=== PATIENT | male | born 1990 | race Caucasian/White ===

== ENCOUNTER 2021-06-15 19:00 | Emergency (ER) | payer OTHER, BC, SELFPAY ==
[2021-06-15 19:39] VITALS: BP 142/91; PULSE 94; RESP 16; TEMP 36.8; O2SAT 97; BMI 31.1
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
[2021-06-15 20:59] VITALS: PULSE 88; RESP 16; O2SAT 100
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
[2021-06-15] MEDS: naproxen 500 mg Tablet PO (21:22)
[2021-06-15 21:39] VITALS: BP 132/78; PULSE 64; RESP 18; O2SAT 98
== END 2021-06-15 21:40 | disposition home or self-care (01) ==
PROVIDERS: Emergency Provider Emergency Medicine
DX: S39.012A Strain of muscle, fascia and tendon of lower back, initial encounter (principal); V68.5XXA Driver of heavy transport vehicle injured in noncollision transport accident in traffic accident, initial encounter
CPT/HCPCS: 72100; 99283

== ENCOUNTER → 2023-12-04 14:12 | Outpatient (BNVA) | payer BC, SELFPAY | PROVIDERS: PCP Family Medicine Adult Medicine; Visit Provider Family Medicine Adult Medicine | DX: R53.83 Other fatigue (principal); R41.3 Other amnesia | CPT/HCPCS: 80053; 84403; 84443; 85025 ==

== ENCOUNTER 2024-04-03 13:59 | Emergency (ER) | payer BC, OTHER, SELFPAY ==
[2024-04-03 14:16] VITALS: BP 124/90; PULSE 88; RESP 18; TEMP 36.7; O2SAT 97; BMI 29.8
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
--- NOTE | 2024-04-03 14:51 | PC.NURSE ---
cleansed wound and dressed with telfa and kerlex.
== END 2024-04-03 14:51 | disposition home or self-care (01) ==
PROVIDERS: Emergency Provider Physician Assistant; PCP Family Medicine Adult Medicine
DX: T24.101A Burn of first degree of unspecified site of right lower limb, except ankle and foot, initial encounter (principal); X19.XXXA Contact with other heat and hot substances, initial encounter; Y99.0 Civilian activity done for income or pay
CPT/HCPCS: 99282

== ENCOUNTER 2024-06-20 20:07 | Emergency (ER) | payer BC, SELFPAY ==
--- NOTE | 2024-06-20 20:29 | XRR_ITS ---
PROCEDURE INFORMATION: Exam: XR Left Knee Exam date and time: 06/20/2024 8:46 PM Age: 33 years old Clinical indication: Injury or trauma; Sprain or strain; Patella or knee; Patient HX: Patient felt pop in left knee while playing basketball. C/O pain worse on lateral side of knee. ; Additional info: Inj pain TECHNIQUE: Imaging protocol: Radiologic exam of the left knee. Views: 1 or 2 views. COMPARISON: No relevant prior studies available. FINDINGS: Bones/joints: There is no evidence for acute fracture or malalignment. No joint space narrowing or osteophyte formation. Soft tissues: Normal. XR/XR knee LT 1-2V [id number] IMPRESSION: No acute findings. If there is desire for further evaluation, a MRI could be performed.
[2024-06-20 20:30] VITALS: BP 121/80; PULSE 95; RESP 16; TEMP 36.7; O2SAT 96; BMI 31.8
--- NOTE | 2024-06-20 21:10 | W.ED.EXTPRO ---
HPI - Extremity Problem General: Chief complaint: Extremity Injury, Lower Stated complaint: left knee injury Time Seen by Provider: 06/20/24 20:29 History of Present Illness: Patient is a 33-year-old male who presents to the emergency department with complaints of left knee pain. Patient reports he was playing ball approximately an hour and a half ago when he twisted his knee. He states he felt something give. He said he felt a popping sensation with movement that was more lateral. When he landed on the ground there was another popping sensation and that movement resolved. Patient was unable to bear weight initially due to pain. He wrapped the knee with a compression/Kalyan wrap. His symptoms improved. He reports he had 1 previous knee injury but does not recall which knee it was. It was reportedly a meniscus tear. This occurred when he was living in [place]. Patient denies other chronic medical comorbidities. He is treated for depression. Related Data Previous Rx's Medication Instructions Recorded bupropion HCl 300 mg 24 hr tablet, 300 mg PO QAM depressions #90 tabs 02/04/24 extended release bupropion HCl 150 mg 24 hr tablet, 150 mg PO QAM #90 tabs 04/02/24 extended release Allergies Allergy/AdvReac Type Severity Reaction Status Date / Time No Known Allergies Allergy Verified 04/03/24 14:22 Review of Systems General: Reports: 10 or more systems reviewed and unremarkable except in HPI and below PFSH ED PFSH: Medical History Depression determined by examination Memory changes Fatigue Surgical History No pertinent past surgical history Family History Father Heart disease Mother History of back surgery Social History Smoking and tobacco/nicotine status: never used tobacco/nicotine Alcohol intake: never Substance/Drug Use: never Physical Exam Const: COMMON NORMALS: no acute distress, average body habitus, patient oriented x3, no limitations, healthy appearing, alert and well nourished Extremity: GENERAL: Yes normal exam except as noted LEFT LOWER EXTREMITY: Yes knee joint Left knee: Yes inspection (No obvious injury. No ecchymosis, no deformity.), Yes palpation (Tenderness to the lateral aspect of the knee) and Yes ROM (Limited due to pain. Tolerates passive ROM) Neuro: COMMON NORMALS: patient oriented x3, moves all extremities, no focal motor deficits, no sensory deficits noted and gait normal SENSORIUM/ORIENTATION: Yes alert Skin: NARRATIVE SKIN EXAM: see above Course Vital Signs: Vital signs: Vital Signs Temperature 98.1 F 06/20/24 20:30 Pulse Rate 78 06/20/24 21:11 Respiratory Rate 16 06/20/24 21:11 Blood Pressure 129/76 06/20/24 21:11 Pulse Oximetry 96 06/20/24 21:11 Oxygen Delivery Me thod Room Air 06/20/24 21:11 MDM - Extremity (Nontraumatic) Medical Decision Making Patient was evaluated in the emergency department today for a left knee injury. Patient reports that he had a popping sensation and felt as though his patella may have dislocated. It reduced on its own if so. He did undergo XR imaging of the knee which revealed no acute fractures. His patella may ride to more lateral at this time. But he is nontender to and around the patella. His tenderness is located to the lateral aspect of the knee. His x-ray reveals no acute fracture. We did put him in a knee immobilizer and advised him to use ice and elevation. He needs to follow-up with primary care this week. Were also going to have him follow-up with orthopedics. All questions answered Lab Data Radiology Impressions Knee X-Ray 06/20/24 20:29 IMPRESSION: No acute findings. If there is desire for further evaluation, a MRI could be performed. All radiology interpretation(s) finalized by discharge Discharge Plan Discharge Patient Disposition: Home Clinical Impression: Knee pain Condition: Stable Prescriptions: No Action bupropion HCl 300 mg tablet extended release 24 hr 300 mg PO QAM Qty: 90 1RF bupropion HCl 150 mg tablet extended release 24 hr 150 mg PO QAM Qty: 90 1RF Discharge Orders: Discharge ED (Routine); Ordered 06/20/24 Ordered By: Yani Kathleen Referrals: Boo Schwarz MD [Primary Care Provider] - Discharge Diet: Advance as tolerated Discharge Activity: Resume usual activity Patient Instructions: Knee Sprain (ED), Knee Pain (ED), Knee Immobilizer (ED), Pain Management Activity Restrictions/Additional Instructions: Please wear your knee immobilizer at all times. You need to keep a barrier between the knee immobilizer and your skin though. Ice and elevate the extremity. Follow-up with primary care I have sent a referral to Dr. Borja?Ortho. Return to the emergency department as needed for new, concerning, worsening symptoms Coding Level of Care Code ED Informatics Physician Liaison for [employer]
[2024-06-20 21:11] VITALS: BP 129/76; PULSE 78; RESP 16; O2SAT 96
[2024-06-20 21:37] VITALS: BP 125/57; PULSE 87; RESP 16; O2SAT 95
--- NOTE | 2024-06-22 08:48 | DCPLANNER ---
messaged ortho for er f/u
== END 2024-06-20 21:41 | disposition home or self-care (01) ==
PROVIDERS: Emergency Provider Nurse Practitioner; PCP Family Medicine Adult Medicine
DX: M25.562 Pain in left knee (principal)
CPT/HCPCS: 73560; 99283

== ENCOUNTER → 2024-07-02 08:19 | Outpatient (BNVA) | payer BC, SELFPAY | PROVIDERS: PCP Family Medicine Adult Medicine; Visit Provider Physician Assistant | DX: M25.561 Pain in right knee; M25.562 Pain in left knee; S83.8X2A Sprain of other specified parts of left knee, initial encounter; X58.XXXA Exposure to other specified factors, initial encounter | CPT/HCPCS: 73560; 73565 ==

== ENCOUNTER 2024-08-24 07:46 | Outpatient (CLI) | payer BC, SELFPAY ==
--- NOTE | 2024-08-24 08:00 | MR_ITS ---
WS: [id number] MRI LEFT KNEE NONCONTRAST TECHNIQUE: Axial PD, coronal PD fat sat, coronal PD, sagittal PD, and sagittal PD fat-sat images obta ined. CLINICAL INFORMATION: injury of left knee COMPARISON: None. FINDINGS: Distal quadriceps and patella tendons are intact. Hypertrophic patella. Normal ACL. Normal PCL. 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 Tiny amount of subchondral edema. Chronic thinnin g of the medial and lateral meniscus. No acute appearing meniscal tears. Peripheral extrusion of the lateral meniscus. Concave deformity to the medial patellar facet suspicious for recurrent dislocation . Suspected nondisplaced fracture through the medial patella with tiny amount of edema. Partial-thick ness tear involving the medial patellar retinaculum. Slight lateral subluxation of the patella. Recom mend correlation for patellar instability. Tiny amount of edema involving the lateral femoral condyle . Somewhat shallow trochlear groove. LCL and MCL appear intact. Normal fibular head. MR/MR knee LT wo con* [id number] IMPRESSION: 1. Normal ACL and PCL. 2. Grade IV chondromalacia patella advanced for patient this age with subchond ral edema. Full-thickness cartilage fissuring. 3. Slight lateral subluxation of the patella with partial tear of the medial p atellar retinaculum insertion. Recommend correlation for patellar instability. 4. Suspected hairline fracture through the medial inferior patella at the reti nacular insertion with a small amount of edema suspicious for nondisplaced frac ture. Concave deformity to the medial patellar facet. No visualized displaced a vulsed fragments. Recommend correlation with area of pain and injury. 5. Moderate suprapatellar effusion. 6. Chronic thinning of the medial and lateral meniscus. No acute appearing men iscal tears. Peripheral extrusion of the lateral meniscus.. Outbridge grading: grade IV: full-thickness cartilage loss with underlying bone reactive changes
== END 2024-08-24 07:47 | disposition home or self-care (01) ==
PROVIDERS: PCP Family Medicine Adult Medicine; Visit Provider Physician Assistant
DX: M22.42 Chondromalacia patellae, left knee (principal); M22.2X2 Patellofemoral disorders, left knee; M25.462 Effusion, left knee; R93.7 Abnormal findings on diagnostic imaging of other parts of musculoskeletal system
CPT/HCPCS: 73721

== ENCOUNTER → 2024-09-22 08:49 | Outpatient (BNVA) | payer BC, SELFPAY | PROVIDERS: PCP Family Medicine; Visit Provider Family Medicine | DX: R79.89 Other specified abnormal findings of blood chemistry (principal); F32.A Depression, unspecified; R53.83 Other fatigue; E66.811 Obesity, class 1; J32.9 Chronic sinusitis, unspecified; M22.42 Chondromalacia patellae, left knee; N52.9 Male erectile dysfunction, unspecified; R06.83 Snoring | CPT/HCPCS: 80053; 80061; 82728; 83036; 83550; 84403; 84439; 84443; 85025 ==

== ENCOUNTER 2024-11-04 11:40 | Outpatient (CLI) | payer BC, SELFPAY | END 2024-11-04 11:41 | disposition home or self-care (01) | LOC: SPT 11:41 | PROVIDERS: PCP Family Medicine; Visit Provider Student in an Organized Health Care Education/Training Program | DX: Z46.89 Encounter for fitting and adjustment of other specified devices (principal); M22.42 Chondromalacia patellae, left knee; S83.8X2D Sprain of other specified parts of left knee, subsequent encounter; X58.XXXD Exposure to other specified factors, subsequent encounter | CPT/HCPCS: 97760; L1812 ==

== ENCOUNTER 2024-11-12 07:30 | Outpatient (RCR) | payer BC, SELFPAY | END 2024-11-16 23:59 | disposition home or self-care (01) | LOC: SPT 07:30 | PROVIDERS: Visit Provider Student in an Organized Health Care Education/Training Program | DX: M22.8X2 Other disorders of patella, left knee (principal) | CPT/HCPCS: 97110; 97161 ==

== ENCOUNTER 2024-11-17 05:00 | Outpatient (RCR) | payer BC, SELFPAY | END 2024-12-16 08:24 | disposition home or self-care (01) | LOC: SPT 05:00 | PROVIDERS: PCP Family Medicine; Visit Provider Student in an Organized Health Care Education/Training Program | DX: M22.8X2 Other disorders of patella, left knee (principal) | CPT/HCPCS: 97110 ==

== ENCOUNTER → 2025-01-05 09:10 | Outpatient (BNVA) | payer BC, SELFPAY | PROVIDERS: PCP Family Medicine; Visit Provider Family Medicine | DX: R79.89 Other specified abnormal findings of blood chemistry (principal) | CPT/HCPCS: 84403; 85025 ==

== ENCOUNTER → 2025-04-27 09:02 | Outpatient (BNVA) | payer BC, SELFPAY | PROVIDERS: PCP Family Medicine; Visit Provider Family Medicine | DX: R79.89 Other specified abnormal findings of blood chemistry (principal) | CPT/HCPCS: 84403; 85025 ==